=== PATIENT | female | born 1970 | race Caucasian/White ===

== ENCOUNTER → 2021-02-24 | Outpatient (CLI) | payer OTHER | LOC: RAD 08:12 | DX: G95.9 Disease of spinal cord, unspecified (principal); G35 Multiple sclerosis; D72.810 Lymphocytopenia | CPT/HCPCS: A9585 ==

== ENCOUNTER → 2021-03-03 | Outpatient (CLI) | payer OTHER | LOC: RAD 06:57 | DX: G35 Multiple sclerosis (principal); D72.810 Lymphocytopenia | CPT/HCPCS: A9585 ==